=== PATIENT | female | born 1955 | race African-American/Black ===

== ENCOUNTER 2018-11-04 06:25 | Day surgery (SDC) | payer OTHER ==
[~2018-11-04 06:25] MED LIST: SOD CHLORIDE 0.9% 1,000 ML IV
[2018-11-04] MEDS ORDERED: PROPOFOL 20 ML (10:18)
[2018-11-04] MEDS ORDERED: FENTAnyl 50 MCG/ML VIAL ×2 (10:18→12:31)
[2018-11-04] MEDS ORDERED: GLYCOPYRROLATE 0.4 MG INJ (10:18)
[2018-11-04] MEDS ORDERED: ONDANSETRON 4 MG INJ (10:18)
[2018-11-04] MEDS ORDERED: CEFAZOLIN 1 GM INJ (10:18)
[2018-11-04] MEDS ORDERED: ROCURONIUM 50 MG INJ (10:18)
[2018-11-04] MEDS ORDERED: NEOSTIGMINE 3 MG/3 ML SYRINGE (10:18)
[2018-11-04] MEDS ORDERED: DEXAMETHASONE 4 MG/ML 5 ML INJ (10:18)
[2018-11-04] MEDS ORDERED: MIDAZOLAM 1 MG/ML 2 ML INJ (10:18)
[2018-11-04] MEDS ORDERED: DIPHENHYDRAMINE 50 MG INJ IV (11:00)
[2018-11-04] MEDS ORDERED: OXYCODONE/ACETAMINOPHEN (5/325) TAB PO ×2 (11:00)
[2018-11-04] MEDS ORDERED: ALBUTEROL 0.083% (NEB) 2.5 MG/3 ML AMP HHN (11:00)
[2018-11-04] MEDS ORDERED: TRIMETHOBENZAMIDE 100 MG/ML VIAL IM (11:00)
[2018-11-04] MEDS ORDERED: MIDAZOLAM 1 MG/ML 2 ML INJ IV (11:00)
[2018-11-04] MEDS ORDERED: IPRATROPIUM (NEB) 0.5 MG/2.5 ML AMP HHN (11:00)
[2018-11-04] MEDS ORDERED: FENTAnyl 50 MCG/ML VIAL IV ×3 (11:00)
[2018-11-04] MEDS ORDERED: EPHEDrine SULFATE 50 MG/5 ML SYG IV (11:00)
[2018-11-04] MEDS ORDERED: LABETALOL HCL 20MG INJ IV (11:00)
[2018-11-04] MEDS ORDERED: HYDROmorphONE 1 MG/5 ML IV SYRINGE IV ×3 (11:00)
[2018-11-04] MEDS ORDERED: GENTAMICIN 80 MG INJ (11:18)
[2018-11-04] MEDS ORDERED: BUPIVACAINE 0.25% (MPF) 30 ML INJ (11:18)
[2018-11-04] MEDS: BUPIVACAINE 0.5%/EPI (SDV) 30 ML INJ INJ (11:30)
[2018-11-04] MEDS ORDERED: EXPAREL NOTE (BUPIVICAINE LIPOSOMAL) XX (11:30)
[2018-11-04] MEDS ORDERED: BUPIVACAINE LIPOSOME/PF 266 MG/20 ML VIAL INFIL ×2 (11:30→12:00)
[2018-11-04] MEDS ORDERED: BUPIVACAINE 0.5%/EPI (SDV) 30 ML INJ (11:37)
[2018-11-04] MEDS ORDERED: LABETALOL HCL 20MG INJ (13:00)
[2018-11-04] MEDS ORDERED: morphine 2 MG INJ IV (13:30)
[2018-11-04] MEDS ORDERED: HYDROCODONE/APAP (5/325) TAB PO (13:30)
[2018-11-04] MEDS ORDERED: ONDANSETRON 4 MG INJ IV (13:30)
[2018-11-04] MEDS: ONDANSETRON 4 MG INJ IV (13:41)
[2018-11-04] MEDS: MEPERIDINE 25 MG INJ IV (13:41)
[2018-11-04] MEDS: hydrALAzine 20 MG INJ IV (13:46)
[2018-11-04] MEDS: METOCLOPRAMIDE 10 MG INJ IV (15:26)
== END 2018-11-04 16:20 | disposition home or self-care (01) ==
LOC: SDS 06:25
DX: N65.1 Disproportion of reconstructed breast (principal)
CPT/HCPCS: 19316; 71045

== ENCOUNTER 2019-04-07 05:46 | Day surgery (SDC) | payer OTHER ==
[2019-04-07] MEDS ORDERED: BUPIVACAINE 0.25% (MPF) 30 ML INJ (07:12)
[2019-04-07] MEDS ORDERED: NEOSTIGMINE 3 MG/3 ML SYRINGE (07:30)
[2019-04-07] MEDS ORDERED: PROPOFOL 20 ML (07:30)
[2019-04-07] MEDS ORDERED: LIDOCAINE 2% (SDV) 5 ML INJ (07:30)
[2019-04-07] MEDS ORDERED: MEPERIDINE 100 MG INJ (07:30)
[2019-04-07] MEDS ORDERED: GLYCOPYRROLATE 0.4 MG INJ (07:30)
[2019-04-07] MEDS ORDERED: ROCURONIUM 50 MG INJ (07:30)
[2019-04-07] MEDS ORDERED: SUCCINYLCHOLINE CHLORIDE 100 MG/5 ML SYG IV (07:30)
[2019-04-07] MEDS ORDERED: ONDANSETRON 4 MG INJ (07:35)
[2019-04-07] MEDS ORDERED: METOCLOPRAMIDE 10 MG INJ (07:35)
[2019-04-07] MEDS: POLYMYXIN/BACITRACIN 1L IRRIG (08:25)
[2019-04-07] MEDS: GENTAMICIN 80 MG INJ (08:25)
[2019-04-07] MEDS: BUPIVACAINE 0.25%/EPI (SDV) 10 ML INJ (08:25)
[2019-04-07] MEDS: EPINEPHrine 1 MG INJ (08:26)
[2019-04-07] MEDS: BUPIVACAINE LIPOSOME/PF 266 MG/20 ML VIAL INFIL (08:44)
[2019-04-07] MEDS ORDERED: FENTAnyl 50 MCG/ML VIAL IV ×3 (09:00)
[2019-04-07] MEDS ORDERED: EPHEDrine 25 MG/5 ML SYG IV (09:00)
[2019-04-07] MEDS ORDERED: LABETALOL HCL 20MG INJ IV (09:00)
[2019-04-07] MEDS ORDERED: MIDAZOLAM 1 MG/ML 2 ML INJ IV (09:00)
[2019-04-07] MEDS ORDERED: OXYCODONE/ACETAMINOPHEN (5/325) TAB PO ×2 (09:00)
[2019-04-07] MEDS ORDERED: HYDROmorphONE 1 MG/5 ML IV SYRINGE IV ×3 (09:00)
[2019-04-07] MEDS ORDERED: DIPHENHYDRAMINE 50 MG INJ IV (09:00)
[2019-04-07] MEDS ORDERED: METOCLOPRAMIDE 10 MG INJ IV (09:00)
[2019-04-07] MEDS ORDERED: ONDANSETRON 4 MG INJ IV (10:30)
[2019-04-07] MEDS ORDERED: morphine 2 MG INJ IV (10:30)
[2019-04-07] MEDS ORDERED: HYDROCODONE/APAP (5/325) TAB PO (10:30)
[2019-04-07] MEDS: ONDANSETRON 4 MG INJ IV (10:42)
[2019-04-07] MEDS: hydrALAzine 20 MG INJ IV (10:42)
[2019-04-07] MEDS: MEPERIDINE 25 MG INJ IV (10:50)
== END 2019-04-07 12:42 | disposition home or self-care (01) ==
LOC: SDS 05:46
DX: Z42.1 Encounter for breast reconstruction following mastectomy (principal); Z85.3 Personal history of malignant neoplasm of breast
CPT/HCPCS: 19340